=== PATIENT | male | born 1970 | race Caucasian/White ===

== ENCOUNTER 2020-10-24 19:18 | Inpatient (IN) | payer BC, OTHER ==
[2020-10-24] MEDS ORDERED: ACETAMINOPHEN 1000 MG/100 ML VIAL (NON FORMULARY) IVPB ONE (20:36)
[2020-10-24] MEDS ORDERED: LACTATED RINGERS SOLUTION 1000 ML INFUS.BAG IV ONE (20:36)
[2020-10-24] MEDS ORDERED: CHOLECALCIFEROL (VIT D3) 1,000 UNIT (25 MCG) TABLET PO ONE (20:36)
[2020-10-24] MEDS ORDERED: DEXAMETHASONE SOD PHOSPHATE 10 MG/1 ML VIAL IVPUSH ONE (20:41)
[2020-10-24] MEDS ORDERED: ZINC SULFATE 220 MG CAPSULE (FP) PO SCH ×2 (20:45→23:45)
[2020-10-24] MEDS ORDERED: ACETAMINOPHEN INJECTION 100 ML IVPB ONE (21:04)
[2020-10-24] MEDS ORDERED: ZINC SULFATE 220 MG CAPSULE (FP) ONE (21:05)
[2020-10-24] MEDS ORDERED: DEXAMETHASONE SOD PHOSPHATE 10 MG/1 ML VIAL ONE (21:05)
[2020-10-24] MEDS ORDERED: ASCORBIC ACID 500 MG TABLET (FP) PO ONE (21:33)
[2020-10-24 21:45] LABS: BASO % 0.1 % (0-2.0); HEMATOCRIT 51.9 % (35.4-49); HEMOGLOBIN 17.4 GM/dL (11.7-16.9); LYMPH % 3.2 % (8-40); MCH 32.2 pg (25.7-33.7); MCHC 33.6 g/dl (32.0-35.9); MONO % 1.8 % (3.8-10.2); NEUT % 94.9 % (42.8-82.8); PLATELET COUNT 213 K/MM3 (134-434); RBC 5.41 M/mm3 (4.00-5.60); RDW 12.6 % (11.9-15.9); WHITE BLOOD COUNT 20.3 K/mm3 (4.0-10.0)
[2020-10-24] MEDS ORDERED: ASCORBIC ACID 500 MG TABLET (FP) ONE (21:51)
[2020-10-24 21:54] LABS: INR 1.13 (0.83-1.09); PROTHROMBIN TIME (PATIENT) 13.6 SEC (9.7-13.0)
[2020-10-24 21:57] LABS: ACTIVATED PTT 29.3 SECONDS (25.2-36.5)
[2020-10-24] MEDS ORDERED: ASCORBIC ACID 500 MG TABLET (FP) PO SCH (22:00)
[2020-10-24 22:06] LABS: MAGNESIUM 2.6 mg/dL (1.8-2.4)
[2020-10-24 22:14] LABS: POTASSIUM 4.2 mmol/L (3.5-5.1)
[2020-10-24 22:17] LABS: ALBUMIN 3.1 g/dl (3.4-5.0); BLOOD UREA NITROGEN 22.8 mg/dL (7-18); CALCIUM 8.9 mg/dL (8.5-10.1)
[2020-10-24 22:20] LABS: CREATININE 1.1 mg/dL (0.55-1.3)
[2020-10-24 22:22] LABS: TOT PROT 7.4 g/dl (6.4-8.2)
[2020-10-24 22:24] LABS: BILIRUBIN,TOTAL 1.5 mg/dL (0.2-1); LDH 382 U/L (87-246)
[2020-10-24 22:26] LABS: N-TERMINAL BNP 109.2 pg/ml (5-125)
[2020-10-24 22:30] LABS: PH,URINE 5.5 (5.0-8.0); URINE APPEARANCE CLEAR; URINE BILIRUBIN NEGATIVE (NEGATIVE); URINE COLOR YELLOW; URINE GLUCOSE (UA) 3+ (NEGATIVE); URINE KETONE 1+ (NEGATIVE); URINE LEUK ESTERASE NEGATIVE (NEGATIVE); URINE NITRITE NEGATIVE (NEGATIVE); URINE PROTEIN NEGATIVE (NEGATIVE); URINE UROBILINOGEN 0.2 mg/dL (0.2-1.0)
[2020-10-24 22:49] LABS: ERYTHROCYTE SEDIMENTATION RATE 40 mm/hr (0-10)
[2020-10-24] MEDS ORDERED: CEFTRIAXONE 1 GM in DEXTROSE 5%-WATER - 50 ML IVPB ONE (23:26)
[2020-10-24] MEDS ORDERED: AZITHROMYCIN IVPB 500 MG in DEXTROSE 5%-WATER - 250 ML IVPB ONE (23:26)
[2020-10-24] MEDS ORDERED: MAGNESIUM SULF 50% (8.12 MEQ/2 ML-1 GM VIAL) IVPB ONE (23:28)
[2020-10-24] MEDS ORDERED: POTASSIUM CHLORIDE TABS 20 MEQ TABLET.ER (FP) PO ONE ×2 (23:29→23:35)
[2020-10-24] MEDS ORDERED: CEFTRIAXONE 1 GM/50 ML BAG ONE (23:34)
[2020-10-24] MEDS ORDERED: FAMOTIDINE 20 MG TABLET PO SCH (23:45)
[2020-10-24] MEDS ORDERED: ALBUTEROL SO4 HFA INHALER IH PRN (23:51)
[2020-10-24] MEDS ORDERED: SODIUM CHLORIDE 0.9% 500 ML INFUS.BAG IV ONE (23:55)
[2020-10-25] MEDS ORDERED: AZITHROMYCIN IVPB 500 MG/250 ML BAG IVPB ONE (00:20)
[2020-10-25] MEDS ORDERED: MAGNESIUM SULFATE IN WATER 2 GM/50 ML IVPB IVPB ONE (01:35)
[2020-10-25 08:09] LABS: HEMATOCRIT 49.1 % (35.4-49); HEMOGLOBIN 16.8 GM/dL (11.7-16.9); LYMPH % 7.1 % (8-40); MCH 33.2 pg (25.7-33.7); MCHC 34.1 g/dl (32.0-35.9); MEAN CELL VOLUME 97.2 fl (80-96); MEAN PLT VOLUME 8.8 fl (7.5-11.1); MONO % 4.8 % (3.8-10.2); NEUT % 88.1 % (42.8-82.8); PLATELET COUNT 208 K/MM3 (134-434); RBC 5.06 M/mm3 (4.00-5.60); RDW 12.6 % (11.9-15.9); WHITE BLOOD COUNT 22.2 K/mm3 (4.0-10.0)
[2020-10-25 08:25] LABS: POTASSIUM 4.1 mmol/L (3.5-5.1)
[2020-10-25 08:27] LABS: CALCIUM 8.6 mg/dL (8.5-10.1)
[2020-10-25 08:28] LABS: ALBUMIN 2.9 g/dl (3.4-5.0); BLOOD UREA NITROGEN 22.1 mg/dL (7-18)
[2020-10-25 08:31] LABS: CREATININE 0.8 mg/dL (0.55-1.3)
[2020-10-25 08:33] LABS: BILIRUBIN,TOTAL 0.6 mg/dL (0.2-1); TOT PROT 6.8 g/dl (6.4-8.2)
[2020-10-25] MEDS: INSULIN SLIDING SCALE (NOVOLOG) 1 VIAL SQ SCH ×4 (09:00→21:32)
[2020-10-25] MEDS: CHOLECALCIFEROL (VIT D3) 1,000 UNIT (25 MCG) TABLET PO SCH (09:00)
[2020-10-25] MEDS: ASCORBIC ACID 500 MG TABLET (FP) PO SCH ×2 (09:00→21:36)
[2020-10-25] MEDS: FAMOTIDINE 20 MG TABLET PO SCH ×2 (09:00→21:35)
[2020-10-25] MEDS: ENOXAPARIN NA (PORCINE) 40 MG/0.4 ML DISP.SYRIN SQ SCH (09:00)
[2020-10-25] MEDS: ZINC SULFATE 220 MG CAPSULE (FP) PO SCH ×2 (09:00→21:35)
[2020-10-25 09:26] LABS: ANISOCYTOSIS 0; MACROCYTOSIS 1+; PLATELET ESTIMATE NORMAL
[2020-10-25] MEDS ORDERED: ZINC SULFATE 220 MG CAPSULE (FP) ONE (09:27)
[2020-10-25] MEDS ORDERED: ALBUTEROL SO4 HFA INHALER IH ONE (09:27)
[2020-10-25] MEDS ORDERED: DEXAMETHASONE SOD PHOSPHATE 10 MG/1 ML VIAL ONE (09:27)
[2020-10-25] MEDS ORDERED: ASCORBIC ACID 500 MG TABLET (FP) ONE (09:27)
[2020-10-25] MEDS ORDERED: FAMOTIDINE 20 MG TABLET ONE (09:27)
[2020-10-25] MEDS ORDERED: ENOXAPARIN NA (PORCINE) 40 MG/0.4 ML DISP.SYRIN SQ ONE (09:28)
[2020-10-25] MEDS: DEXAMETHASONE SOD PHOSPHATE 4 MG/1 ML VIAL IVPUSH SCH (11:59)
[2020-10-25] MEDS ORDERED: REMDESIVIR 200 MG in SODIUM CHLORIDE 210 ML IVPB ONE (17:00)
[2020-10-26] MEDS: INSULIN SLIDING SCALE (NOVOLOG) 1 VIAL SQ SCH ×4 (06:54→21:24)
[2020-10-26 08:15] LABS: BASO % 0.2 % (0-2.0); HEMATOCRIT 46.8 % (35.4-49); HEMOGLOBIN 15.8 GM/dL (11.7-16.9); LYMPH % 5.5 % (8-40); MCH 32.5 pg (25.7-33.7); MCHC 33.7 g/dl (32.0-35.9); MEAN CELL VOLUME 96.4 fl (80-96); MEAN PLT VOLUME 8.5 fl (7.5-11.1); MONO % 5.6 % (3.8-10.2); NEUT % 88.7 % (42.8-82.8); PLATELET COUNT 215 K/MM3 (134-434); RBC 4.85 M/mm3 (4.00-5.60); RDW 12.6 % (11.9-15.9); WHITE BLOOD COUNT 24.1 K/mm3 (4.0-10.0)
[2020-10-26 08:33] LABS: POTASSIUM 4.2 mmol/L (3.5-5.1)
[2020-10-26 08:40] LABS: ALBUMIN 2.5 g/dl (3.4-5.0); BLOOD UREA NITROGEN 25.4 mg/dL (7-18); CALCIUM 8.1 mg/dL (8.5-10.1)
[2020-10-26 08:43] LABS: CREATININE 0.8 mg/dL (0.55-1.3)
[2020-10-26 08:44] LABS: BILIRUBIN,TOTAL 0.6 mg/dL (0.2-1)
[2020-10-26 08:45] LABS: TOT PROT 6.6 g/dl (6.4-8.2)
[2020-10-26 10:08] LABS: ANISOCYTOSIS 0; MACROCYTOSIS 0; PLATELET ESTIMATE NORMAL
[2020-10-26] MEDS: CHOLECALCIFEROL (VIT D3) 1,000 UNIT (25 MCG) TABLET PO SCH (10:27)
[2020-10-26] MEDS: ZINC SULFATE 220 MG CAPSULE (FP) PO SCH ×2 (10:27→21:12)
[2020-10-26] MEDS: DEXAMETHASONE SOD PHOSPHATE 4 MG/1 ML VIAL IVPUSH SCH (10:28)
[2020-10-26] MEDS: ASCORBIC ACID 500 MG TABLET (FP) PO SCH ×2 (10:28→21:12)
[2020-10-26] MEDS: ENOXAPARIN NA (PORCINE) 40 MG/0.4 ML DISP.SYRIN SQ SCH (10:28)
[2020-10-26] MEDS: FAMOTIDINE 20 MG TABLET PO SCH ×2 (10:28→21:12)
[2020-10-26] MEDS: REMDESIVIR 100 MG in SODIUM CHLORIDE 230 ML IVPB SCH (18:29)
[2020-10-26] MEDS: ENOXAPARIN NA (PORCINE) 100 MG/1 ML DISP.SYRIN SQ SCH (21:35)
[2020-10-26] MEDS ORDERED: ACETAMINOPHEN 325 MG TABLET (FP) PO PRN (22:26)
[2020-10-27] MEDS: INSULIN SLIDING SCALE (NOVOLOG) 1 VIAL SQ SCH ×4 (06:49→21:33)
[2020-10-27] MEDS: ASCORBIC ACID 500 MG TABLET (FP) PO SCH ×2 (09:07→21:32)
[2020-10-27] MEDS: CHOLECALCIFEROL (VIT D3) 1,000 UNIT (25 MCG) TABLET PO SCH (09:07)
[2020-10-27 09:08] LABS: BASO % 0.2 % (0-2.0); EOS % 0.1 % (0-4.5); HEMATOCRIT 47.6 % (35.4-49); HEMOGLOBIN 16.2 GM/dL (11.7-16.9); LYMPH % 10.5 % (8-40); MCH 33.1 pg (25.7-33.7); MCHC 33.9 g/dl (32.0-35.9); MEAN CELL VOLUME 97.4 fl (80-96); MEAN PLT VOLUME 8.9 fl (7.5-11.1); MONO % 6.8 % (3.8-10.2); NEUT % 82.4 % (42.8-82.8); PLATELET COUNT 211 K/MM3 (134-434); RBC 4.89 M/mm3 (4.00-5.60); RDW 12.6 % (11.9-15.9); WHITE BLOOD COUNT 16.1 K/mm3 (4.0-10.0)
[2020-10-27] MEDS: ENOXAPARIN NA (PORCINE) 100 MG/1 ML DISP.SYRIN SQ SCH ×2 (09:08→21:33)
[2020-10-27] MEDS: DEXAMETHASONE SOD PHOSPHATE 4 MG/1 ML VIAL IVPUSH SCH (09:08)
[2020-10-27] MEDS: ZINC SULFATE 220 MG CAPSULE (FP) PO SCH ×2 (09:08→21:32)
[2020-10-27] MEDS: FAMOTIDINE 20 MG TABLET PO SCH ×2 (09:08→21:33)
[2020-10-27 09:41] LABS: POTASSIUM 4.2 mmol/L (3.5-5.1)
[2020-10-27 09:48] LABS: ALBUMIN 2.5 g/dl (3.4-5.0); BLOOD UREA NITROGEN 25.4 mg/dL (7-18); CALCIUM 8.2 mg/dL (8.5-10.1)
[2020-10-27 09:52] LABS: CREATININE 0.7 mg/dL (0.55-1.3)
[2020-10-27 09:53] LABS: BILIRUBIN,TOTAL 0.6 mg/dL (0.2-1); TOT PROT 6.4 g/dl (6.4-8.2)
[2020-10-27 10:12] LABS: ANISOCYTOSIS 0; MACROCYTOSIS 0; PLATELET ESTIMATE NORMAL
[2020-10-27] MEDS: REMDESIVIR 100 MG in SODIUM CHLORIDE 230 ML IVPB SCH (18:20)
[2020-10-27] MEDS ORDERED: INSULIN (NOVOLOG) ASPART 100 UNITS/ML 10ML VIAL ONE (21:24)
[2020-10-28] MEDS: INSULIN SLIDING SCALE (NOVOLOG) 1 VIAL SQ SCH ×4 (06:21→22:29)
[2020-10-28 08:41] LABS: BASO % 0.6 % (0-2.0); HEMATOCRIT 49.9 % (35.4-49); LYMPH % 16.1 % (8-40); MCH 33.2 pg (25.7-33.7); MCHC 34.1 g/dl (32.0-35.9); MEAN CELL VOLUME 97.3 fl (80-96); MONO % 8.2 % (3.8-10.2); NEUT % 75.1 % (42.8-82.8); PLATELET COUNT 228 K/MM3 (134-434); RBC 5.13 M/mm3 (4.00-5.60); RDW 12.6 % (11.9-15.9); WHITE BLOOD COUNT 14.4 K/mm3 (4.0-10.0)
[2020-10-28 09:22] LABS: POTASSIUM 4.4 mmol/L (3.5-5.1)
[2020-10-28] MEDS: ZINC SULFATE 220 MG CAPSULE (FP) PO SCH ×2 (09:26→22:30)
[2020-10-28] MEDS: FAMOTIDINE 20 MG TABLET PO SCH ×2 (09:26→22:30)
[2020-10-28] MEDS: ENOXAPARIN NA (PORCINE) 100 MG/1 ML DISP.SYRIN SQ SCH ×2 (09:26→22:29)
[2020-10-28] MEDS: ASCORBIC ACID 500 MG TABLET (FP) PO SCH ×2 (09:26→22:30)
[2020-10-28] MEDS: CHOLECALCIFEROL (VIT D3) 1,000 UNIT (25 MCG) TABLET PO SCH (09:26)
[2020-10-28] MEDS: DEXAMETHASONE SOD PHOSPHATE 4 MG/1 ML VIAL IVPUSH SCH (09:27)
[2020-10-28 09:30] LABS: BLOOD UREA NITROGEN 23.6 mg/dL (7-18); CALCIUM 8.1 mg/dL (8.5-10.1)
[2020-10-28 09:31] LABS: ALBUMIN 2.4 g/dl (3.4-5.0); CREATININE 0.7 mg/dL (0.55-1.3)
[2020-10-28 09:32] LABS: BILIRUBIN,TOTAL 0.8 mg/dL (0.2-1)
[2020-10-28 09:33] LABS: TOT PROT 6.4 g/dl (6.4-8.2)
[2020-10-28 11:48] LABS: ANISOCYTOSIS 0; MACROCYTOSIS 0; PLATELET ESTIMATE NORMAL
[2020-10-28] MEDS: REMDESIVIR 100 MG in SODIUM CHLORIDE 230 ML IVPB SCH (18:45)
[2020-10-29] MEDS: INSULIN SLIDING SCALE (NOVOLOG) 1 VIAL SQ SCH ×4 (06:20→23:07)
[2020-10-29] MEDS: ENOXAPARIN NA (PORCINE) 100 MG/1 ML DISP.SYRIN SQ SCH ×2 (10:26→21:18)
[2020-10-29] MEDS: ZINC SULFATE 220 MG CAPSULE (FP) PO SCH ×2 (10:26→21:18)
[2020-10-29] MEDS: DEXAMETHASONE SOD PHOSPHATE 4 MG/1 ML VIAL IVPUSH SCH (10:26)
[2020-10-29] MEDS: CHOLECALCIFEROL (VIT D3) 1,000 UNIT (25 MCG) TABLET PO SCH (10:26)
[2020-10-29] MEDS: FAMOTIDINE 20 MG TABLET PO SCH ×2 (10:26→21:18)
[2020-10-29] MEDS: ASCORBIC ACID 500 MG TABLET (FP) PO SCH ×2 (10:26→21:18)
[2020-10-29] MEDS: SODIUM CHLORIDE NASAL SPRAY 44 ML BOTTLE NS PRN (13:50)
[2020-10-29] MEDS: REMDESIVIR 100 MG in SODIUM CHLORIDE 230 ML IVPB SCH (18:20)
[2020-10-29] MEDS ORDERED: INSULIN (NOVOLOG) ASPART 100 UNITS/ML 10ML VIAL ONE ×2 (18:37→21:17)
[2020-10-30] MEDS: INSULIN SLIDING SCALE (NOVOLOG) 1 VIAL SQ SCH ×4 (06:07→21:37)
[2020-10-30] MEDS: ENOXAPARIN NA (PORCINE) 100 MG/1 ML DISP.SYRIN SQ SCH ×2 (10:39→21:28)
[2020-10-30] MEDS: FAMOTIDINE 20 MG TABLET PO SCH ×2 (10:40→21:29)
[2020-10-30] MEDS: CHOLECALCIFEROL (VIT D3) 1,000 UNIT (25 MCG) TABLET PO SCH (10:40)
[2020-10-30] MEDS: DEXAMETHASONE SOD PHOSPHATE 4 MG/1 ML VIAL IVPUSH SCH (10:40)
[2020-10-30] MEDS: ASCORBIC ACID 500 MG TABLET (FP) PO SCH ×2 (10:40→21:29)
[2020-10-30] MEDS: ZINC SULFATE 220 MG CAPSULE (FP) PO SCH ×2 (10:41→21:29)
[2020-10-31] MEDS: INSULIN SLIDING SCALE (NOVOLOG) 1 VIAL SQ SCH ×4 (06:28→21:57)
[2020-10-31] MEDS: DEXAMETHASONE SOD PHOSPHATE 4 MG/1 ML VIAL IVPUSH SCH (09:11)
[2020-10-31] MEDS: ZINC SULFATE 220 MG CAPSULE (FP) PO SCH ×2 (09:12→21:57)
[2020-10-31] MEDS: FAMOTIDINE 20 MG TABLET PO SCH ×2 (09:12→21:57)
[2020-10-31] MEDS: ASCORBIC ACID 500 MG TABLET (FP) PO SCH ×2 (09:12→21:57)
[2020-10-31] MEDS: ENOXAPARIN NA (PORCINE) 100 MG/1 ML DISP.SYRIN SQ SCH ×2 (09:12→21:57)
[2020-10-31] MEDS: CHOLECALCIFEROL (VIT D3) 1,000 UNIT (25 MCG) TABLET PO SCH (09:12)
[2020-10-31 09:39] LABS: BASO % 0.7 % (0-2.0); EOS % 0.7 % (0-4.5); HEMATOCRIT 48.3 % (35.4-49); LYMPH % 30.5 % (8-40); MCH 31.6 pg (25.7-33.7); MCHC 33.1 g/dl (32.0-35.9); MEAN CELL VOLUME 95.5 fl (80-96); MEAN PLT VOLUME 8.8 fl (7.5-11.1); MONO % 7.4 % (3.8-10.2); NEUT % 60.7 % (42.8-82.8); PLATELET COUNT 218 K/MM3 (134-434); RBC 5.05 M/mm3 (4.00-5.60); RDW 12.7 % (11.9-15.9); WHITE BLOOD COUNT 11.7 K/mm3 (4.0-10.0)
[2020-10-31 10:06] LABS: POTASSIUM 3.9 mmol/L (3.5-5.1)
[2020-10-31 10:11] LABS: ALBUMIN 2.5 g/dl (3.4-5.0); BLOOD UREA NITROGEN 20.5 mg/dL (7-18); CALCIUM 8.1 mg/dL (8.5-10.1)
[2020-10-31 10:12] LABS: MAGNESIUM 2.4 mg/dL (1.8-2.4)
[2020-10-31 10:14] LABS: PHOSPHOROUS 2.9 mg/dL (2.5-4.9)
[2020-10-31 10:15] LABS: BILIRUBIN,TOTAL 0.6 mg/dL (0.2-1); CREATININE 0.8 mg/dL (0.55-1.3); TOT PROT 5.8 g/dl (6.4-8.2)
[2020-10-31 16:55] VITALS: BMI 34.1
[2020-11-01] MEDS: INSULIN SLIDING SCALE (NOVOLOG) 1 VIAL SQ SCH ×4 (06:24→21:55)
[2020-11-01 09:20] LABS: BASO % 0.4 % (0-2.0); EOS % 0.7 % (0-4.5); HEMATOCRIT 49.7 % (35.4-49); HEMOGLOBIN 16.2 GM/dL (11.7-16.9); LYMPH % 35.7 % (8-40); MCH 31.6 pg (25.7-33.7); MCHC 32.7 g/dl (32.0-35.9); MEAN CELL VOLUME 96.6 fl (80-96); MEAN PLT VOLUME 8.7 fl (7.5-11.1); MONO % 8.3 % (3.8-10.2); NEUT % 54.9 % (42.8-82.8); PLATELET COUNT 219 K/MM3 (134-434); RBC 5.14 M/mm3 (4.00-5.60); RDW 12.5 % (11.9-15.9); WHITE BLOOD COUNT 11.5 K/mm3 (4.0-10.0)
[2020-11-01 09:37] LABS: POTASSIUM 4.1 mmol/L (3.5-5.1)
[2020-11-01 09:53] LABS: CALCIUM 8.5 mg/dL (8.5-10.1)
[2020-11-01 09:54] LABS: ALBUMIN 2.6 g/dl (3.4-5.0)
[2020-11-01 09:57] LABS: CREATININE 0.7 mg/dL (0.55-1.3)
[2020-11-01 09:59] LABS: BILIRUBIN,TOTAL 1.6 mg/dL (0.2-1); TOT PROT 6.3 g/dl (6.4-8.2)
[2020-11-01] MEDS ORDERED: INSULIN (NOVOLOG) ASPART 100 UNITS/ML 10ML VIAL ONE (10:22)
[2020-11-01] MEDS: FAMOTIDINE 20 MG TABLET PO SCH ×2 (10:28→21:54)
[2020-11-01] MEDS: DEXAMETHASONE SOD PHOSPHATE 4 MG/1 ML VIAL IVPUSH SCH (10:29)
[2020-11-01] MEDS: ZINC SULFATE 220 MG CAPSULE (FP) PO SCH ×2 (10:29→21:54)
[2020-11-01] MEDS: ENOXAPARIN NA (PORCINE) 100 MG/1 ML DISP.SYRIN SQ SCH ×2 (10:29→21:54)
[2020-11-01] MEDS: ASCORBIC ACID 500 MG TABLET (FP) PO SCH ×2 (10:29→21:54)
[2020-11-01] MEDS: CHOLECALCIFEROL (VIT D3) 1,000 UNIT (25 MCG) TABLET PO SCH (10:29)
[2020-11-02] MEDS: INSULIN SLIDING SCALE (NOVOLOG) 1 VIAL SQ SCH ×5 (06:35→22:40)
[2020-11-02] MEDS: DEXAMETHASONE SOD PHOSPHATE 4 MG/1 ML VIAL IVPUSH SCH (11:23)
[2020-11-02] MEDS: ASCORBIC ACID 500 MG TABLET (FP) PO SCH ×2 (11:25→22:28)
[2020-11-02] MEDS: CHOLECALCIFEROL (VIT D3) 1,000 UNIT (25 MCG) TABLET PO SCH (11:25)
[2020-11-02] MEDS: ZINC SULFATE 220 MG CAPSULE (FP) PO SCH ×2 (11:25→22:27)
[2020-11-02] MEDS: FAMOTIDINE 20 MG TABLET PO SCH ×2 (11:25→22:28)
[2020-11-02] MEDS: ENOXAPARIN NA (PORCINE) 100 MG/1 ML DISP.SYRIN SQ SCH ×2 (11:25→22:27)
[2020-11-02] MEDS: SODIUM CHLORIDE NASAL SPRAY 44 ML BOTTLE NS PRN (11:26)
[2020-11-02] MEDS ORDERED: INSULIN (NOVOLOG) ASPART 100 UNITS/ML 10ML VIAL ONE (18:36)
[2020-11-03] MEDS: metFORMIN HCL 500 MG TABLET (FP) PO SCH ×2 (06:44→17:08)
[2020-11-03] MEDS: INSULIN SLIDING SCALE (NOVOLOG) 1 VIAL SQ SCH ×4 (06:44→22:44)
[2020-11-03 09:12] LABS: BASO % 0.3 % (0-2.0); EOS % 0.3 % (0-4.5); HEMATOCRIT 44.3 % (35.4-49); HEMOGLOBIN 15.2 GM/dL (11.7-16.9); LYMPH % 29.5 % (8-40); MCH 32.7 pg (25.7-33.7); MCHC 34.2 g/dl (32.0-35.9); MEAN CELL VOLUME 95.5 fl (80-96); MEAN PLT VOLUME 8.4 fl (7.5-11.1); MONO % 6.7 % (3.8-10.2); NEUT % 63.2 % (42.8-82.8); PLATELET COUNT 218 K/MM3 (134-434); RBC 4.64 M/mm3 (4.00-5.60); RDW 12.4 % (11.9-15.9); WHITE BLOOD COUNT 11.9 K/mm3 (4.0-10.0)
[2020-11-03 09:28] LABS: POTASSIUM 3.7 mmol/L (3.5-5.1)
[2020-11-03 09:32] LABS: ALBUMIN 2.7 g/dl (3.4-5.0)
[2020-11-03 09:35] LABS: CREATININE 0.6 mg/dL (0.55-1.3)
[2020-11-03 09:37] LABS: BILIRUBIN,TOTAL 0.6 mg/dL (0.2-1)
[2020-11-03] MEDS: DEXAMETHASONE SOD PHOSPHATE 4 MG/1 ML VIAL IVPUSH SCH (09:57)
[2020-11-03] MEDS: FAMOTIDINE 20 MG TABLET PO SCH ×2 (09:59→22:15)
[2020-11-03] MEDS: ASCORBIC ACID 500 MG TABLET (FP) PO SCH ×2 (09:59→22:15)
[2020-11-03] MEDS: CHOLECALCIFEROL (VIT D3) 1,000 UNIT (25 MCG) TABLET PO SCH (09:59)
[2020-11-03] MEDS: ZINC SULFATE 220 MG CAPSULE (FP) PO SCH ×2 (09:59→22:15)
[2020-11-03] MEDS: ENOXAPARIN NA (PORCINE) 100 MG/1 ML DISP.SYRIN SQ SCH ×2 (10:06→22:16)
[2020-11-03] MEDS ORDERED: INSULIN (NOVOLOG) ASPART 100 UNITS/ML 10ML VIAL ONE (11:06)
[2020-11-04] MEDS: INSULIN SLIDING SCALE (NOVOLOG) 1 VIAL SQ SCH ×4 (06:52→22:23)
[2020-11-04] MEDS: metFORMIN HCL 500 MG TABLET (FP) PO SCH ×2 (06:52→17:30)
[2020-11-04] MEDS: DEXAMETHASONE SOD PHOSPHATE 4 MG/1 ML VIAL IVPUSH SCH (09:42)
[2020-11-04] MEDS: ENOXAPARIN NA (PORCINE) 100 MG/1 ML DISP.SYRIN SQ SCH ×2 (09:42→22:14)
[2020-11-04] MEDS: FAMOTIDINE 20 MG TABLET PO SCH ×2 (09:43→22:14)
[2020-11-04] MEDS: CHOLECALCIFEROL (VIT D3) 1,000 UNIT (25 MCG) TABLET PO SCH (09:43)
[2020-11-04] MEDS: ASCORBIC ACID 500 MG TABLET (FP) PO SCH ×2 (09:43→22:14)
[2020-11-04] MEDS: ZINC SULFATE 220 MG CAPSULE (FP) PO SCH ×2 (09:43→22:14)
[2020-11-05] MEDS: metFORMIN HCL 500 MG TABLET (FP) PO SCH (06:27)
[2020-11-05] MEDS: INSULIN SLIDING SCALE (NOVOLOG) 1 VIAL SQ SCH ×3 (06:27→11:17)
[2020-11-05 10:17] LABS: BASO % 0.5 % (0-2.0); EOS % 0.3 % (0-4.5); HEMATOCRIT 49.2 % (35.4-49); HEMOGLOBIN 16.7 GM/dL (11.7-16.9); LYMPH % 32.4 % (8-40); MCH 32.7 pg (25.7-33.7); MCHC 33.9 g/dl (32.0-35.9); MEAN CELL VOLUME 96.6 fl (80-96); MEAN PLT VOLUME 8.5 fl (7.5-11.1); NEUT % 60.8 % (42.8-82.8); PLATELET COUNT 250 K/MM3 (134-434); RDW 12.6 % (11.9-15.9); WHITE BLOOD COUNT 16.9 K/mm3 (4.0-10.0)
[2020-11-05 10:37] LABS: CHLORIDE 98 mmol/L (98-107); POTASSIUM 3.8 mmol/L (3.5-5.1); SODIUM 136 mmol/L (136-145)
[2020-11-05] MEDS: ENOXAPARIN NA (PORCINE) 100 MG/1 ML DISP.SYRIN SQ SCH (10:41)
[2020-11-05] MEDS: DEXAMETHASONE SOD PHOSPHATE 4 MG/1 ML VIAL IVPUSH SCH (10:41)
[2020-11-05] MEDS: ZINC SULFATE 220 MG CAPSULE (FP) PO SCH (10:42)
[2020-11-05] MEDS: CHOLECALCIFEROL (VIT D3) 1,000 UNIT (25 MCG) TABLET PO SCH (10:42)
[2020-11-05] MEDS: ASCORBIC ACID 500 MG TABLET (FP) PO SCH (10:42)
[2020-11-05] MEDS: FAMOTIDINE 20 MG TABLET PO SCH (10:42)
[2020-11-05 11:01] VITALS: BP 117/63; PULSE 62; TEMP 98.3
[2020-11-05 11:02] LABS: ALBUMIN 3.1 g/dl (3.4-5.0); ANION GAP 13 MMOL/L (8-16); BLOOD UREA NITROGEN 19.8 mg/dL (7-18); CALCIUM 8.6 mg/dL (8.5-10.1); CO2 25 mmol/L (21-32); GLUCOSE,RANDOM 223 mg/dL (74-106)
[2020-11-05 11:05] LABS: CREATININE 0.7 mg/dL (0.55-1.3); SGOT/AST 26 U/L (15-37); SGPT/ALT 82 U/L (13-61); TOT PROT 6.8 g/dl (6.4-8.2)
[2020-11-05 11:07] LABS: ALK PHOS 75 U/L (45-117); BILIRUBIN,TOTAL 0.5 mg/dL (0.2-1)
== END 2020-11-05 12:02 | disposition home or self-care (01) | DRG 177 ==
LOC: JER 19:18 → JERBED 21:47 → J6WEST-2 10-25 20:24 → J5S 10-26 17:04
PROVIDERS: ADMIT Internal Medicine; ATTEND Internal Medicine
PROC: XW033E5 Introduction of Remdesivir Anti-infective into Peripheral Vein, Percutaneous Approach, New Technology Group 5 (ICD-10-PCS; principal; 2020-10-26)
PROC: XW13325 Transfusion of Convalescent Plasma (Nonautologous) into Peripheral Vein, Percutaneous Approach, New Technology Group 5 (ICD-10-PCS; 2020-10-26)
DX: U07.1 COVID-19 (principal); J96.01 Acute respiratory failure with hypoxia; J12.89 Other viral pneumonia; J98.11 Atelectasis; I10 Essential (primary) hypertension; E11.65 Type 2 diabetes mellitus with hyperglycemia; E66.9 Obesity, unspecified; Z68.34 Body mass index [BMI] 34.0-34.9, adult
CPT/HCPCS: 36415; 36430; 71045-TC-FY; 71250-TC; 80053; 81003; 82010; 82550; 82728; 82947; 82962; 83036; 83615; 83735; 83880; 84100; 84443; 84484; 85025; 85379; 85384; 85610; 85651; 85730; 86140; 86850; 86900; 86901; 87040; 93005; 93010; 99285-25; C9399; C9803; J0131; J1100; P9017; U0003

== ENCOUNTER 2023-02-25 15:40 | Emergency (ER) | payer BC, OTHER ==
[2023-02-25 15:56] VITALS: BP 134/88; PULSE 101; RESP 18; TEMP 98; BMI 36.0
[2023-02-25 17:55] LABS: URINE APPEARANCE CLEAR; URINE BILIRUBIN NEGATIVE (NEGATIVE); URINE COLOR YELLOW; URINE GLUCOSE (UA) NEGATIVE (NEGATIVE); URINE KETONE TRACE (NEGATIVE); URINE LEUK ESTERASE NEGATIVE (NEGATIVE); URINE NITRITE NEGATIVE (NEGATIVE); URINE PROTEIN NEGATIVE (NEGATIVE); URINE UROBILINOGEN 0.2 mg/dL (0.2-1.0)
[2023-02-25] MEDS ORDERED: SODIUM CHLORIDE 0.9% 1000 ML INFUS.BAG IV ONE (18:08)
[2023-02-25 18:14] LABS: BASO % 1.4 % (0-2.0); EOS % 2.4 % (0-4.5); HEMOGLOBIN 16.7 GM/dL (11.7-16.9); LYMPH % 35.7 % (8-40); MCH 31.5 pg (25.7-33.7); MCHC 34.8 g/dl (32.0-35.9); MEAN CELL VOLUME 90.4 fl (80-96); MEAN PLT VOLUME 7.7 fl (7.5-11.1); MONO % 9.9 % (3.8-10.2); NEUT % 50.6 % (42.8-82.8); PLATELET COUNT 243 10^3/uL (134-434); RBC 5.31 M/mm3 (4.00-5.60); RDW 13.4 % (11.9-15.9); WHITE BLOOD COUNT 12.2 K/mm3 (4.0-10.0)
[2023-02-25 18:38] LABS: CALCIUM 9.3 mg/dL (8.5-10.1)
[2023-02-25 18:39] LABS: ALBUMIN 4.4 g/dl (3.4-5.0); BLOOD UREA NITROGEN 12.1 mg/dL (7-18)
[2023-02-25 18:44] LABS: BILIRUBIN,TOTAL 0.9 mg/dL (0.2-1); TOT PROT 8.2 g/dl (6.4-8.2)
== END 2023-02-25 23:20 | disposition home or self-care (01) ==
LOC: JER 15:40
DX: N34.2 Other urethritis (principal)
CPT/HCPCS: 36415; 74177-TC; 80053; 81003; 85025; 87086; 99285-25

== ENCOUNTER 2024-08-20 04:27 | Day surgery (SDC) | payer OTHER ==
[2024-08-15 13:36] VITALS: BMI 34.7
[2024-08-20 13:36] VITALS: PULSE 88; RESP 16
[2024-08-20] MEDS ORDERED: PROPOFOL 20 ML ONE (14:24)
[2024-08-20] MEDS ORDERED: MIDAZOLAM HCL 2 MG/2 ML SINGLE DOSE VIAL ONE (14:24)
[2024-08-20 15:18] VITALS: BP 132/80; TEMP 97.2
== END 2024-08-20 16:45 | disposition home or self-care (01) ==
LOC: JASU-SURG 04:27
PROVIDERS: ATTEND Urology
PROC: 0TF4XZZ Fragmentation in Left Kidney Pelvis, External Approach (ICD-10-PCS; principal; 2024-08-20 15:30)
DX: N20.0 Calculus of kidney (principal)
CPT/HCPCS: 82962